=== PATIENT | female | born 1940 | race Caucasian/White ===

== ENCOUNTER 2025-01-28 14:54 | Inpatient (IN) | payer MEDICARE, BC ==
[2025-01-28 16:06] LABS: BASOPHILS PERCENT AUTO 0.1 % (0.0-1.0); EOSINOPHILS PERCENT AUTO 0.8 % (1.0-3.0); HEMATOCRIT 36.3 % (37.0-47.0); LYMPHOCYTES PERCENT AUTO 17.5 % (20.5-50.1); MEAN CORPUSCULAR HEMOGLOBIN 31.6 pg (27.0-34.0); MEAN CORPUSCULAR HGB CONC 33.1 g/dL (33.0-35.0); MEAN CORPUSCULAR VOLUME 95.5 fL (80-100); NEUTROPHILS PERCENT AUTO 73.6 % (42.2-75.2); PLATELET COUNT,PLT 252 10^3/uL (150-450); WHITE BLOOD CELL COUNT,WBC 7.8 10^3/uL (5.0-10.0)
[2025-01-28] MEDS: Metoprolol Tartrate 5 MG/5 ML SDV IVPUSH ONE (16:21)
[2025-01-28 16:23] LABS: A/G RATIO 1.1; ALBUMIN 3.7 g/dL (3.4-5.0); ANION GAP 13.9 mEq/L (7-13); BILIRUBIN TOTAL 0.3 mg/dL (0.2-1.0); BUN/CREATININE RATIO 22.7 (No establ ref range); CALCIUM 8.7 mg/dL (8.5-10.1); CREATININE 1.63 mg/dL (0.55-1.02); EST CRCL DRUG DOSING (CG) 24.91 mL/min; MAGNESIUM 1.6 mg/dL (1.8-2.4); POTASSIUM,K 3.9 mmol/L (3.5-5.1); T4 FREE 0.85 ng/dL (0.76-1.46); TSH ULTRASENSITIVE 3.18 uIU/mL (0.36-3.74)
[2025-01-28] MEDS ORDERED: Acetaminophen 325 MG Tab PO PRN (18:11)
[2025-01-28] MEDS: Sodium Chloride 0.9% 500 ML IV SCH (18:34)
[2025-01-28] MEDS: Digoxin 500 MCG/2 ML Amp IVPUSH ONE (18:36)
[2025-01-28] MEDS: Rivaroxaban 10 MG Tab PO SCH (18:38)
[2025-01-28] MEDS: Magnesium Sulfate 2 GM/50 mL 2 GM in Premix Bag 1 BAG IV ONE (18:42)
[2025-01-28] MEDS: NS with KCl 40mEq 1,000 ML IV SCH (20:12)
[2025-01-28] MEDS: Simvastatin 10 MG Tab PO SCH (20:55)
[2025-01-28 22:31] LABS: APPEARANCE,URINE CLEAR (CLEAR); BILIRUBIN,URINE NEGATIVE (NEGATIVE); COLOR,URINE YELLOW (YELLOW); GLUCOSE,URINE NEGATIVE (NEGATIVE); KETONES,URINE NEGATIVE (NEGATIVE); LEUKOCYTE ESTERASE,URINE NEGATIVE (NEGATIVE); NITRITE,URINE NEGATIVE (NEGATIVE); OCCULT BLOOD,URINE NEGATIVE (NEGATIVE); PH,URINE 5.5 (5.0-9.0); PROTEIN,URINE NEGATIVE (NEGATIVE); UROBILINOGEN,URINE 0.2 mg/dL (0.2-1.0)
[2025-01-28 22:36] LABS: AMPHETAMINES,URINE NEGATIVE (NEGATIVE); BARBITURATES,URINE NEGATIVE (NEGATIVE); BENZODIAZEPINE,URINE NEGATIVE (NEGATIVE); MDMA (ECSTASY), URINE NEGATIVE (NEGATIVE); METHADONE,URINE NEGATIVE (NEGATIVE); METHAMPHETAMINES,URINE NEGATIVE (NEGATIVE); OPIATES,URINE NEGATIVE (NEGATIVE); OXYCODONE,URINE NEGATIVE (NEGATIVE); PHENCYCLIDINE,URINE NEGATIVE (NEGATIVE); TCA,URINE NEGATIVE (NEGATIVE)
[2025-01-29 06:31] LABS: HEMATOCRIT 31.3 % (37.0-47.0); HEMOGLOBIN 10.7 g/dL (12.0-16.0); MEAN CORPUSCULAR HGB CONC 34.2 g/dL (33.0-35.0); MEAN CORPUSCULAR VOLUME 96.6 fL (80-100); RED BLOOD CELL COUNT 3.24 10^6/uL (4.2-5.4); WHITE BLOOD CELL COUNT,WBC 5.3 10^3/uL (5.0-10.0)
[2025-01-29 06:48] LABS: ANION GAP 10.2 mEq/L (7-13); CALCIUM 8.6 mg/dL (8.5-10.1); CREATININE 1.18 mg/dL (0.55-1.02); EST CRCL DRUG DOSING (CG) 37.08 mL/min; MAGNESIUM 2.1 mg/dL (1.8-2.4); PHOSPHORUS 2.7 mg/dL (2.6-4.7); POTASSIUM,K 5.2 mmol/L (3.5-5.1)
[2025-01-29] MEDS: Simvastatin 10 MG Tab PO SCH (09:12)
[2025-01-29] MEDS: Magnesium Oxide 400 MG Tab PO SCH (09:13)
[2025-01-29] MEDS: Metoprolol Tartrate 25 MG Tab PO SCH (09:13)
[2025-01-29 16:07] LABS: INR 1.1 (0.9-1.2); PROTHROMBIN TIME 11.4 SEC (9.0-12.0)
[2025-01-29] MEDS: Warfarin 2.5 MG Tab PO ONE (16:10)
[2025-01-29] MEDS ORDERED: Rivaroxaban 10 MG Tab PO SCH (21:00)
[2025-01-30 06:24] LABS: BASOPHILS PERCENT AUTO 0.2 % (0.0-1.0); EOSINOPHILS PERCENT AUTO 2.5 % (1.0-3.0); HEMATOCRIT 31.4 % (37.0-47.0); HEMOGLOBIN 10.4 g/dL (12.0-16.0); LYMPHOCYTES PERCENT AUTO 19.8 % (20.5-50.1); MEAN CORPUSCULAR HEMOGLOBIN 32.1 pg (27.0-34.0); MEAN CORPUSCULAR HGB CONC 33.1 g/dL (33.0-35.0); MEAN CORPUSCULAR VOLUME 96.9 fL (80-100); MONOCYTES PERCENT AUTO 7.9 % (2-8); NEUTROPHILS PERCENT AUTO 69.6 % (42.2-75.2); PLATELET COUNT,PLT 199 10^3/uL (150-450); RED BLOOD CELL COUNT 3.24 10^6/uL (4.2-5.4); WHITE BLOOD CELL COUNT,WBC 6.1 10^3/uL (5.0-10.0)
[2025-01-30 06:35] LABS: PROTHROMBIN TIME 10.2 SEC (9.0-12.0)
[2025-01-30 06:37] LABS: ANION GAP 12.9 mEq/L (7-13); CALCIUM 8.8 mg/dL (8.5-10.1); CREATININE 1.1 mg/dL (0.55-1.02); EST CRCL DRUG DOSING (CG) 39.78 mL/min; POTASSIUM,K 4.9 mmol/L (3.5-5.1)
[2025-01-30] MEDS: amLODIPine 5 MG Tab PO SCH (07:59)
== END 2025-01-30 11:05 | disposition home or self-care (01) | DRG 309 ==
LOC: DL.ED 14:54 → DL.MS 17:48
PROVIDERS: ADMIT Internal Medicine; ATTEND Internal Medicine
DX: I48.91 Unspecified atrial fibrillation (principal); G47.00 Insomnia, unspecified; N17.9 Acute kidney failure, unspecified; E83.42 Hypomagnesemia; I10 Essential (primary) hypertension; E78.5 Hyperlipidemia, unspecified; I82.409 Acute embolism and thrombosis of unspecified deep veins of unspecified lower extremity; E78.00 Pure hypercholesterolemia, unspecified; G47.33 Obstructive sleep apnea (adult) (pediatric); I27.20 Pulmonary hypertension, unspecified; Z79.01 Long term (current) use of anticoagulants; Z79.82 Long term (current) use of aspirin; Z79.899 Other long term (current) drug therapy; Z98.49 Cataract extraction status, unspecified eye; Z90.710 Acquired absence of both cervix and uterus; Z98.51 Tubal ligation status
CPT/HCPCS: 36415; 71045; 80053; 83735; 84439; 84443; 84484; 85025; J3490; 80048; 80305-QW; 81003; 84100; 84132; 85027; 85610; 99223; 99232; 99239; A9270-GY; J1160; J3475; J3480; J7040